=== PATIENT | male | born 1980 ===

== ENCOUNTER → 2020-11-28 11:04 | Outpatient (CLI) | payer OTHER, MEDICAID, SELFPAY ==
[2020-11-28 11:56] LABS: Hemoglobin A1C% w Est Avg Glu 4.9 % (4.0-6.0)
[2020-11-28 12:16] LABS: Alanine Aminotransferase 43 IU/L (<50); Albumin 4.7 g/dL (3.5-5.0); Albumin Globulin Ratio 1.6 (1.0-2.8); Alkaline Phosphatase 79 U/L (38-126); Aspartate Aminotransferase 34 IU/L (17-59); BUN Creatinine Ratio 11.7 (6-22); Bilirubin Total 0.8 mg/dL (0.2-1.3); Blood Urea Nitrogen 9 mg/dL (9-20); Calcium 9.5 mg/dL (8.4-10.2); Carbon Dioxide 29 mmol/L (22-32); Chloride 102 mmol/L (98-107); Cholesterol 184 mg/dL (140-199); Estimated Glomerular Filt Rate > 60.0 mL/min (>60); Globulin 2.9 g/dL (1.7-4.1); Glucose 90 mg/dL (70-100); HDL Cholesterol 43 mg/dL (40-60); HEMOLYSIS < 15 (0-50); LDL Cholesterol Calculated 119 mg/dL (<100); Potassium 4.2 mmol/L (3.4-5.1); Sodium 138 mmol/L (137-145); Total Protein 7.6 g/dL (6.3-8.2); Triglycerides 110 mg/dL (35-150)
== END ==
PROVIDERS: PCP Family Medicine; Referring Provider Family Medicine; Visit Provider Family Medicine
DX: M54.5 Low back pain (principal); M62.830 Muscle spasm of back; S23.3XXA Sprain of ligaments of thoracic spine, initial encounter; Z13.1 Encounter for screening for diabetes mellitus; Z13.220 Encounter for screening for lipoid disorders
CPT/HCPCS: 36415; 80053; 80061; 83036

== ENCOUNTER 2021-01-03 10:15 | Outpatient (RCR) | payer OTHER, MEDICAID, SELFPAY ==
--- NOTE | 2020-11-15 10:53 | PT.OIE ---
Current Diagnoses Low back pain (11/15/20) Muscle spasm of back (11/15/20) Sprain of ligaments of thoracic spine, initial encounter (11/15/20) Past Medical History (Last Updated 11/11/20 @ 14:40 by Ryan Morse MD) Cerumen impaction Diabetes mellitus screening Screening cholesterol level Visit Care Team Role Provider Type Kenny Cantu DO Primary Care Provider Physician Specialty: Family Practice Address: [address] [place] [address] Email: [email or web address] Ryan Morse MD Attending Provider Physician Referring Provider Specialty: [facility] Address: [address] [place] [address], [id number] Email: [email or web address] Initial Evaluation PT-OP-A Visit Information Start: 11/15/20 08:30 Freq: Status: Active Protocol: Document 11/15/20 09:00 AMB (Rec: 11/15/20 16:01 AMB [email or web address]) Out-Patient Physical Therapy Visit Information Visit Information Visit Type Initial Evaluation Visit Start Time 09:00 Visit Stop Time 09:45 Total Visit Minutes 45 Visit Number 1 PT-OP-B Current Condition Start: 11/15/20 08:30 Freq: Status: Active Protocol: Document 11/15/20 09:02 AMB (Rec: 11/15/20 09:32 AMB [id number]) Current Condition History of Current Condition Onset Date A few months ago Current Complaints Acute flare up of chronic back pain History of Current Condition Keith reports he was lifting his 30# niece in a bend/lift/ twist motion and flared up his back pain. He does think sx have been improving, but continues to notice pinching with flexion or extension. Has been getting better with acupucture, had been seeing a chiropractor and it is somewhat helpful. Running a few weeks ago about a mile, normally running 2-3 miles. No numbness tingling radiating pain. Pt is 6'3 and notes he has had poor posture, remembers being in school and slouching and figures that started the pain in the beginning. Pain is mostly lower thoracic in nature. 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 and that was an issue Current Functional Impairments (Reported) Functional Limitations- ADL's Pain with lifting, has been avoiding flexion and extension of spine, limiting running due to impact Personal Factors Other Personal Factors That May Effect pt is 6'3 Therapy/Recovery PT-OP-C Subjective Start: 11/15/20 08:30 Freq: Status: Active Protocol: Document 11/15/20 09:00 AMB (Rec: 11/16/20 10:52 AMB [email or web address]) Patient Questionnaires Oswestry Low Back Index Oswestry Score 32 Oswestry Impairment 20 to 39% Impaired (Score 20- 39) OP-PT Pain Assessment Comments Pain Comments 4-8/10 from T10-L1 denies laterality of pain PT-OP-F Manual Assessment Start: 11/15/20 08:30 Freq: Status: Active Protocol: Document 11/15/20 09:00 AMB (Rec: 11/16/20 10:52 AMB [email or web address]) Manual Assessments Joint Mobility Assessment Joint Mobility Assessment Stiffness with PAs from T8 to L1, good movement of L3-5. PT-OP-J Posture/Palpation/Skin Start: 11/15/20 08:30 Freq: Status: Active Protocol: Document 11/15/20 09:00 AMB (Rec: 11/16/20 10:52 AMB [email or web address]) Posture Evaluation Comments Posture Comments Pt with increased thoracic kyphosis and lumbar lordosis PT-OP-K Range of Motion Start: 11/15/20 08:30 Freq: Status: Active Protocol: Document 11/15/20 09:00 AMB (Rec: 11/16/20 10:52 AMB [email or web address]) Lumbar Spine Range of Motion Lumbar Spine Active Degrees Testing Position Standing ROM Limitations Muscle Tone,Pain Comments flat thoracic and lumbar spine with flexion, only movement from hip flexion, good movement with extension and sidebending bilaterally PT-OP-M Strength Start: 11/15/20 08:30 Freq: Status: Active Protocol: Document 11/15/20 09:00 AMB (Rec: 11/16/20 10:52 AMB [email or web address]) Hip Strength Hip Manual Muscle Testing Right Flexion (L2) 5 Normal Extension (S1) 5 Normal Abduction 5 Normal Adduction 5 Normal Left Flexion (L2) 5 Normal Extension (S1) 5 Normal Abduction 5 Normal Adduction 5 Normal PT-OP-Q Treatments Start: 11/15/20 08:30 Freq: Status: Active Protocol: Document 11/15/20 09:00 AMB (Rec: 11/16/20 10:52 AMB [email or web address]) Therapeutic Exercises Supine Exercises 1 Supine Exercise Name hamstring stretch Reps/Minutes 30x2 Sidelying Exercises 1 Sidelying Exercise Name open book Reps/Minutes 2x10 Other Exercises 1 Other Exercise Name helen pose Reps/Minutes 30x2 PT-OP-T Assessment and Plan Start: 11/15/20 08:30 Freq: Status: Active Protocol: Document 11/15/20 09:00 AMB (Rec: 11/15/20 16:01 AMB [email or web address]) Physical Therapy Assessment Rehab Potential Rehabilitation Potential Good Evaluation Complexity Number of Personal Factors/Comorbidities 0 Number of Body Systems Impaired 4 or More Clinical Presentation at Evaluation Stable Impairments Impairments Functional Activities,Pain, Posture,ROM,Strength Goals Three Impairment Pain Short Term Goal (STG) Keith will lift 20 pounds from floor to waist height without an increase in back pain. STG Duration 4 weeks Assisted Goal (LTG) Keith will run 2 miles without back pain. LTG Duration 8 weeks Two Impairment ROM Short Term Goal (STG) Keith will improve his range of motion so that he can bend forward without back pain. STG Duration 4 weeks One Impairment HEP Short Term Goal (STG) Keith will be independent with his HEP for thoracic mobility and core stability. STG Duration 4 weeks Assessment Summary Assessment Ollie attends physical therapy with lower thoracic back pain, worse with sitting, standing, lifting. It has been slowly improving with time, but he is still very careful and has not returned to his previous level of function of running and lifting. He would benefit from physical therapy to improve his thoracolumbar mobility, improve his core stability, and help him return to his active lifestyle of running and being able to lift at work and lift his niece without back pain. Physical Therapy Plan Frequency and Duration Frequency of Treatment 2x/Week Duration of Treatment 8 weeks Plan of Care Start Date 11/15/20 Plan of Care End Date 01/10/21 Therapeutic Interventions Therapeutic Interventions Home Exercise Program,Joint Mobilizations,Manual Therapy, Neuromuscular Re-education, Self-Care/Home Management,Soft Tissue Mobilization, Therapeutic Activities, Therapeutic Exercises Modalities Cold Pack/Ice Massage,Electric Stimulation,Hot Packs Next Visit Focus/Plan Next Note Type Treatment Note Next Visit Plan Follow up on HEP: open book, helen pose, hamstring stretch , begin core stabilization
--- NOTE | 2020-11-15 10:55 | PT.OPPOC ---
Physical, Occupational & Speech Therapy At Located Within [facility] Current Diagnoses Low back pain (11/15/20) Muscle spasm of back (11/15/20) Sprain of ligaments of thoracic spine, initial encounter (11/15/20) Visit Care Team Role Provider Type Kenny Cantu DO Primary Care Provider Physician Specialty: [facility] Address: [address] [place] [address], [id number] Email: [email or web address] Ryan Morse MD Attending Provider Physician Referring Provider Specialty: [facility] Address: [address] [place] [address], [id number] Email: [email or web address] Plan Of Care PT-OP-T Assessment and Plan Start: 11/15/20 08:30 Freq: Status: Active Protocol: Document 11/15/20 09:00 AMB (Rec: 11/15/20 16:01 AMB [email or web address]) Physical Therapy Assessment Rehab Potential Rehabilitation Potential Good Evaluation Complexity Number of Personal Factors/Comorbidities 0 Number of Body Systems Impaired 4 or More Clinical Presentation at Evaluation Stable Impairments Impairments Functional Activities,Pain, Posture,ROM,Strength Goals Three Impairment Pain Short Term Goal (STG) Keith will lift 20 pounds from floor to waist height without an increase in back pain. STG Duration 4 weeks Legislative Correspondent Goal (LTG) Keith will run 2 miles without back pain. LTG Duration 8 weeks Two Impairment ROM Short Term Goal (STG) Keith will improve his range of motion so that he can bend forward without back pain. STG Duration 4 weeks One Impairment HEP Short Term Goal (STG) Keith will be independent with his HEP for thoracic mobility and core stability. STG Duration 4 weeks Assessment Summary Assessment Ollie attends physical therapy with lower thoracic back pain, worse with sitting, standing, lifting. It has been slowly improving with time, but he is still very careful and has not returned to his previous level of function of running and lifting. He would benefit from physical therapy to improve his thoracolumbar mobility, improve his core stability, and help him return to his active lifestyle of running and being able to lift at work and lift his niece without back pain. Physical Therapy Plan Frequency and Duration Frequency of Treatment 2x/Week Duration of Treatment 8 weeks Plan of Care Start Date 11/15/20 Plan of Care End Date 01/10/21 Therapeutic Interventions Therapeutic Interventions Home Exercise Program,Joint Mobilizations,Manual Therapy, Neuromuscular Re-education, Self-Care/Home Management,Soft Tissue Mobilization, Therapeutic Activities, Therapeutic Exercises Modalities Cold Pack/Ice Massage,Electric Stimulation,Hot Packs Next Visit Focus/Plan Next Note Type Treatment Note Next Visit Plan Follow up on HEP: open book, helen pose, hamstring stretch , begin core stabilization Plan of Care Dates Plan of Care Start Date 11/15/20 Plan of Care End Date 01/10/21 Electronically Signed by: Alexus Velez, PT 11/16/20 0828 Please Sign and Return: I have reviewed this Plan of Care and certify that the skilled therapy services above are required to meet the patient?s needs. Physician Signature Date Printed Name and Credentials Clinical Instructor Signature Printed Name and Credentials
--- NOTE | 2020-11-18 16:10 | PT.OTN ---
Current Diagnoses Low back pain (11/18/20) Muscle spasm of back (11/18/20) Sprain of ligaments of thoracic spine, initial encounter (11/18/20) Physical Therapy Treatment Note PT-OP-A Visit Information Start: 11/15/20 08:30 Freq: Status: Active Protocol: Document 11/18/20 08:58 AMB (Rec: 11/18/20 10:11 AMB [id number]) Out-Patient Physical Therapy Visit Information Visit Information Visit Type Treatment Note Visit Start Time 09:00 Visit Stop Time 09:45 Total Visit Minutes 45 Visit Number 2 PT-OP-B Current Condition Start: 11/15/20 08:30 Freq: Status: Active Protocol: Document 11/15/20 09:02 AMB (Rec: 11/15/20 09:32 AMB [id number]) Current Condition History of Current Condition Onset Date A few months ago Current Complaints Acute flare up of chronic back pain History of Current Condition Keith reports he was lifting his 30# niece in a bend/lift/ twist motion and flared up his back pain. He does think sx have been improving, but continues to notice pinching with flexion or extension. Has been getting better with acupucture, had been seeing a chiropractor and it is somewhat helpful. Running a few weeks ago about a mile, normally running 2-3 miles. No numbness tingling radiating pain. Pt is 6'3 and notes he has had poor posture, remembers being in school and slouching and figures that started the pain in the beginning. Pain is mostly lower thoracic in nature. 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 PT-OP-F Manual Assessment Start: 11/15/20 08:30 Freq: Status: Active Protocol: Document 11/15/20 09:00 AMB (Rec: 11/16/20 10:52 AMB [email or web address]) Manual Assessments Joint Mobility Assessment Joint Mobility Assessment Stiffness with PAs from T8 to L1, good movement of L3-5. PT-OP-J Posture/Palpation/Skin Start: 11/15/20 08:30 Freq: Status: Active Protocol: Document 11/15/20 09:00 AMB (Rec: 11/16/20 10:52 AMB [email or web address]) Posture Evaluation Comments Posture Comments Pt with increased thoracic kyphosis and lumbar lordosis PT-OP-K Range of Motion Start: 11/15/20 08:30 Freq: Status: Active Protocol: Document 11/15/20 09:00 AMB (Rec: 11/16/20 10:52 AMB [email or web address]) Lumbar Spine Range of Motion Lumbar Spine Active Degrees Testing Position Standing ROM Limitations Muscle Tone,Pain Comments flat thoracic and lumbar spine with flexion, only movement from hip flexion, good movement with extension and sidebending bilaterally PT-OP-M Strength Start: 11/15/20 08:30 Freq: Status: Active Protocol: Document 11/15/20 09:00 AMB (Rec: 11/16/20 10:52 AMB [email or web address]) Hip Strength Hip Manual Muscle Testing Right Flexion (L2) 5 Normal Extension (S1) 5 Normal Abduction 5 Normal Adduction 5 Normal Left Flexion (L2) 5 Normal Extension (S1) 5 Normal Abduction 5 Normal Adduction 5 Normal PT-OP-Q Treatments Start: 11/15/20 08:30 Freq: Status: Active Protocol: Document 11/18/20 09:00 AMB (Rec: 11/18/20 16:05 AMB [id number]) Therapeutic Exercises Supine Exercises 2 Supine Exercise Name bridges Reps/Minutes 2x10 Sidelying Exercises 1 Sidelying Exercise Name open book Reps/Minutes 2x10 Sitting Exercises 1 Sitting Exercise Name pelvic circles, with focus on lumbar thoracic movement Comments pt is very stiff through thoracolumbar junction Other Exercises 2 Other Exercise Name cat cow Reps/Minutes 10 1 Other Exercise Name helen pose Reps/Minutes 30x2 Manual Therapy Treatment Soft Tissue Mobilization 1 Body Location thoracic paraspinals Mobilization Type Myofascial Release Joint Mobilizations 1 Joint T8-12 Direction PA Grade IV Body Position Prone Comments in neutral and then in extension Taping 1 Body Location thoracic paraspinals Type of Tape Kinesio Tape Comments 2 I strips PT-OP-T Assessment and Plan Start: 11/15/20 08:30 Freq: Status: Active Protocol: Document 11/18/20 09:00 AMB (Rec: 11/18/20 16:05 AMB [id number]) Physical Therapy Assessment Goals Three Impairment Pain Short Term Goal (STG) Keith will lift 20 pounds from floor to waist height without an increase in back pain. STG Duration 4 weeks Retirement Goal (LTG) Keith will run 2 miles without back pain. LTG Duration 8 weeks Two Impairment ROM Short Term Goal (STG) Keith will improve his range of motion so that he can bend forward without back pain. STG Duration 4 weeks One Impairment HEP Short Term Goal (STG) Keith will be independent with his HEP for thoracic mobility and core stability. STG Duration 4 weeks Assessment Summary Assessment Ollie did well with manual therapy, but even a small amount of thoracic flexion increases his pain. Will start more core stability in neutral, recheck k tape next visit. HEP: bridges with focus on vertebrae by vertebrae, cat/cow before helen pose as warm up. Physical Therapy Plan Next Visit Focus/Plan Next Note Type Treatment Note Next Visit Plan Progress more core stability, working in neutral first
--- NOTE | 2020-11-22 15:51 | PT.OTN ---
Current Diagnoses Low back pain (11/22/20) Muscle spasm of back (11/22/20) Sprain of ligaments of thoracic spine, initial encounter (11/22/20) Physical Therapy Treatment Note PT-OP-A Visit Information Start: 11/15/20 08:30 Freq: Status: Active Protocol: Document 11/22/20 09:00 AMB (Rec: 11/22/20 15:51 AMB [email or web address]) Out-Patient Physical Therapy Visit Information Visit Information Visit Type Treatment Note Visit Start Time 09:00 Visit Stop Time 09:45 Total Visit Minutes 45 Visit Number 3 PT-OP-B Current Condition Start: 11/15/20 08:30 Freq: Status: Active Protocol: Document 11/15/20 09:02 AMB (Rec: 11/15/20 09:32 AMB [id number]) Current Condition History of Current Condition Onset Date A few months ago Current Complaints Acute flare up of chronic back pain History of Current Condition Keith reports he was lifting his 30# niece in a bend/lift/ twist motion and flared up his back pain. He does think sx have been improving, but continues to notice pinching with flexion or extension. Has been getting better with acupucture, had been seeing a chiropractor and it is somewhat helpful. Running a few weeks ago about a mile, normally running 2-3 miles. No numbness tingling radiating pain. Pt is 6'3 and notes he has had poor posture, remembers being in school and slouching and figures that started the pain in the beginning. Pain is mostly lower thoracic in nature. 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 PT-OP-F Manual Assessment Start: 11/15/20 08:30 Freq: Status: Active Protocol: Document 11/15/20 09:00 AMB (Rec: 11/16/20 10:52 AMB [email or web address]) Manual Assessments Joint Mobility Assessment Joint Mobility Assessment Stiffness with PAs from T8 to L1, good movement of L3-5. PT-OP-J Posture/Palpation/Skin Start: 11/15/20 08:30 Freq: Status: Active Protocol: Document 11/15/20 09:00 AMB (Rec: 11/16/20 10:52 AMB [email or web address]) Posture Evaluation Comments Posture Comments Pt with increased thoracic kyphosis and lumbar lordosis PT-OP-K Range of Motion Start: 11/15/20 08:30 Freq: Status: Active Protocol: Document 11/15/20 09:00 AMB (Rec: 11/16/20 10:52 AMB [email or web address]) Lumbar Spine Range of Motion Lumbar Spine Active Degrees Testing Position Standing ROM Limitations Muscle Tone,Pain Comments flat thoracic and lumbar spine with flexion, only movement from hip flexion, good movement with extension and sidebending bilaterally PT-OP-M Strength Start: 11/15/20 08:30 Freq: Status: Active Protocol: Document 11/15/20 09:00 AMB (Rec: 11/16/20 10:52 AMB [email or web address]) Hip Strength Hip Manual Muscle Testing Right Flexion (L2) 5 Normal Extension (S1) 5 Normal Abduction 5 Normal Adduction 5 Normal Left Flexion (L2) 5 Normal Extension (S1) 5 Normal Abduction 5 Normal Adduction 5 Normal PT-OP-Q Treatments Start: 11/15/20 08:30 Freq: Status: Active Protocol: Document 11/22/20 09:00 AMB (Rec: 11/22/20 15:51 AMB [email or web address]) Therapeutic Exercises Supine Exercises 2 Supine Exercise Name bridges Reps/Minutes 2x10 1 Supine Exercise Name supine bike Reps/Minutes 1 minx2 Comments with TA Sidelying Exercises 1 Sidelying Exercise Name open book Reps/Minutes 2x10 Comments #3 t band Standing Exercises 2 Standing Exercise Name thoracic rotation Reps/Minutes #3 tband 1 Standing Exercise Name spinal flexion with sacrum against the wall Reps/Minutes 2x10 Comments with focus on moving incrementally vertebrae by vertebrae Other Exercises 2 Other Exercise Name cat cow Reps/Minutes 10 1 Other Exercise Name helen pose Reps/Minutes 30x2 PT-OP-T Assessment and Plan Start: 11/15/20 08:30 Freq: Status: Active Protocol: Document 11/22/20 09:00 AMB (Rec: 11/22/20 15:51 AMB [email or web address]) Physical Therapy Assessment Goals Three Impairment Pain Short Term Goal (STG) Keith will lift 20 pounds from floor to waist height without an increase in back pain. STG Duration 4 weeks Electronics Mechanic Apprentice Goal (LTG) Keith will run 2 miles without back pain. LTG Duration 8 weeks Two Impairment ROM Short Term Goal (STG) Keith will improve his range of motion so that he can bend forward without back pain. STG Duration 4 weeks One Impairment HEP Short Term Goal (STG) Ketih will be independent with his HEP for thoracic mobility and core stability. STG Duration 4 weeks Assessment Summary Assessment Pt felt more activation of L sided abdominals with rotational core exercises, but straight plane was able to activate both, continues to be stiff into flexion, but doing better with extension. Physical Therapy Plan Next Visit Focus/Plan Next Note Type Treatment Note Next Visit Plan Progress more core stability, working in neutral first
--- NOTE | 2020-11-28 17:17 | PT.OTN ---
Current Diagnoses Low back pain (11/28/20) Muscle spasm of back (11/28/20) Sprain of ligaments of thoracic spine, initial encounter (11/28/20) Physical Therapy Treatment Note PT-OP-A Visit Information Start: 11/15/20 08:30 Freq: Status: Active Protocol: Document 11/28/20 10:21 MA (Rec: 11/28/20 11:00 MA [id number]) Out-Patient Physical Therapy Visit Information Visit Information Visit Type Treatment Note Visit Start Time 10:18 Visit Stop Time 11:58 Total Visit Minutes 40 Visit Number 4 Number of SURGERY SCHEDULER Visits 1 PT-OP-B Current Condition Start: 11/15/20 08:30 Freq: Status: Active Protocol: Document 11/15/20 09:02 AMB (Rec: 11/15/20 09:32 AMB [id number]) Current Condition History of Current Condition Onset Date A few months ago Current Complaints Acute flare up of chronic back pain History of Current Condition Keith reports he was lifting his 30# niece in a bend/lift/ twist motion and flared up his back pain. He does think sx have been improving, but continues to notice pinching with flexion or extension. Has been getting better with acupucture, had been seeing a chiropractor and it is somewhat helpful. Running a few weeks ago about a mile, normally running 2-3 miles. No numbness tingling radiating pain. Pt is 6'3 and notes he has had poor posture, remembers being in school and slouching and figures that started the pain in the beginning. Pain is mostly lower thoracic in nature. 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 PT-OP-F Manual Assessment Start: 11/15/20 08:30 Freq: Status: Active Protocol: Document 11/15/20 09:00 AMB (Rec: 11/16/20 10:52 AMB [email or web address]) Manual Assessments Joint Mobility Assessment Joint Mobility Assessment Stiffness with PAs from T8 to L1, good movement of L3-5. PT-OP-J Posture/Palpation/Skin Start: 11/15/20 08:30 Freq: Status: Active Protocol: Document 11/15/20 09:00 AMB (Rec: 11/16/20 10:52 AMB [email or web address]) Posture Evaluation Comments Posture Comments Pt with increased thoracic kyphosis and lumbar lordosis PT-OP-K Range of Motion Start: 11/15/20 08:30 Freq: Status: Active Protocol: Document 11/15/20 09:00 AMB (Rec: 11/16/20 10:52 AMB [email or web address]) Lumbar Spine Range of Motion Lumbar Spine Active Degrees Testing Position Standing ROM Limitations Muscle Tone,Pain Comments flat thoracic and lumbar spine with flexion, only movement from hip flexion, good movement with extension and sidebending bilaterally PT-OP-M Strength Start: 11/15/20 08:30 Freq: Status: Active Protocol: Document 11/15/20 09:00 AMB (Rec: 11/16/20 10:52 AMB [email or web address]) Hip Strength Hip Manual Muscle Testing Right Flexion (L2) 5 Normal Extension (S1) 5 Normal Abduction 5 Normal Adduction 5 Normal Left Flexion (L2) 5 Normal Extension (S1) 5 Normal Abduction 5 Normal Adduction 5 Normal PT-OP-Q Treatments Start: 11/15/20 08:30 Freq: Status: Active Protocol: Document 11/28/20 10:21 MA (Rec: 11/28/20 11:00 MA [id number]) Therapeutic Exercises Supine Exercises Pelvic Tucks Reps/Minutes x10 Comments Focus on TrA activation LTR Supine Exercise Name Lower Trunk Rotations Side bilateral Reps/Minutes 8x 10 hold 2 Supine Exercise Name articulating bridges Reps/Minutes 2x10 1 Supine Exercise Name 1. Supine Bike 2. double leg ext Prone Exercises Extension Prone Exercise Name opp UE/LE Reps/Minutes x8 Plank Prone Exercise Name 1. modified on forearms 2. full plank Reps/Minutes x30 sec Comments Cues for pelvic tuck to avoid lumbar lordosis Sidelying Exercises 1 Sidelying Exercise Name open book Side bilateral Reps/Minutes 8x5 Standing Exercises 2 Standing Exercise Name thoracic rotation Equipment Used #3 tband Reps/Minutes x10 1 Standing Exercise Name spinal flexion with sacrum against the wall Reps/Minutes 2x10 Comments with focus on moving incrementally vertebrae by vertebrae Other Exercises 2 Other Exercise Name cat cow Reps/Minutes 10 1 Other Exercise Name 1. helen pose 2. reaching arms to R/L Reps/Minutes 30 ea Therapeutic Activity Therapeutic Activity Lifting Name Lifting Reps/Minutes 4x Comments Lifting 24 box off floor and setting it back down, working on squatting and keeping back straight, pulling object closer to body PT-OP-T Assessment and Plan Start: 11/15/20 08:30 Freq: Status: Active Protocol: Document 11/28/20 10:21 MA (Rec: 11/28/20 11:00 MA [id number]) Physical Therapy Assessment Goals Three Impairment Pain Short Term Goal (STG) Keith will lift 20 pounds from floor to waist height without an increase in back pain. STG Duration 4 weeks Snf Goal (LTG) Keith will run 2 miles without back pain. LTG Duration 8 weeks Two Impairment ROM Short Term Goal (STG) Keith will improve his range of motion so that he can bend forward without back pain. STG Duration 4 weeks One Impairment HEP Short Term Goal (STG) Keith will be independent with his HEP for thoracic mobility and core stability. STG Duration 4 weeks Assessment Summary Assessment Pt needed minor cues for core activation and segmental movements during ther ex today . Worked on lifting with pt squatting to lift, but forward flexing to set back down. Educated pt on still bending knees, keeping back straight, to set objects back on floor with pt showing good understanding. During fwd flexion with sacrum against wall, pt needed cues to roll back up slowing, segmentally. Physical Therapy Plan Frequency and Duration Frequency of Treatment 2x/Week Duration of Treatment 8 weeks Plan of Care Start Date 11/15/20 Plan of Care End Date 01/10/21 Therapeutic Interventions Therapeutic Interventions Home Exercise Program,Joint Mobilizations,Manual Therapy, Neuromuscular Re-education, Self-Care/Home Management,Soft Tissue Mobilization, Therapeutic Activities, Therapeutic Exercises Modalities Cold Pack/Ice Massage,Electric Stimulation,Hot Packs Next Visit Focus/Plan Next Note Type Treatment Note Next Visit Plan Talk with pt about continuing PT or d/c Progress more core stability, working in neutral first, manual as needed to paraspinals
--- NOTE | 2020-11-30 11:45 | PT.OTN ---
Current Diagnoses Low back pain (11/30/20) Muscle spasm of back (11/30/20) Sprain of ligaments of thoracic spine, initial encounter (11/30/20) Physical Therapy Treatment Note PT-OP-A Visit Information Start: 11/15/20 08:30 Freq: Status: Active Protocol: Document 11/30/20 09:32 MA (Rec: 11/30/20 10:15 MA [id number]) Out-Patient Physical Therapy Visit Information Visit Information Visit Type Treatment Note Visit Start Time 09:30 Visit Stop Time 10:12 Total Visit Minutes 42 Visit Number 5 Number of BINDER SORTER Visits 2 PT-OP-B Current Condition Start: 11/15/20 08:30 Freq: Status: Active Protocol: Document 11/15/20 09:02 AMB (Rec: 11/15/20 09:32 AMB [id number]) Current Condition History of Current Condition Onset Date A few months ago Current Complaints Acute flare up of chronic back pain History of Current Condition Keith reports he was lifting his 30# niece in a bend/lift/ twist motion and flared up his back pain. He does think sx have been improving, but continues to notice pinching with flexion or extension. Has been getting better with acupucture, had been seeing a chiropractor and it is somewhat helpful. Running a few weeks ago about a mile, normally running 2-3 miles. No numbness tingling radiating pain. Pt is 6'3 and notes he has had poor posture, remembers being in school and slouching and figures that started the pain in the beginning. Pain is mostly lower thoracic in nature. 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 He will book one more appt for 1 month from now for d/c pending how low back is feeling PT-OP-F Manual Assessment Start: 11/15/20 08:30 Freq: Status: Active Protocol: Document 11/15/20 09:00 AMB (Rec: 11/16/20 10:52 AMB [email or web address]) Manual Assessments Joint Mobility Assessment Joint Mobility Assessment Stiffness with PAs from T8 to L1, good movement of L3-5. PT-OP-J Posture/Palpation/Skin Start: 11/15/20 08:30 Freq: Status: Active Protocol: Document 11/15/20 09:00 AMB (Rec: 11/16/20 10:52 AMB [email or web address]) Posture Evaluation Comments Posture Comments Pt with increased thoracic kyphosis and lumbar lordosis PT-OP-K Range of Motion Start: 11/15/20 08:30 Freq: Status: Active Protocol: Document 11/15/20 09:00 AMB (Rec: 11/16/20 10:52 AMB [email or web address]) Lumbar Spine Range of Motion Lumbar Spine Active Degrees Testing Position Standing ROM Limitations Muscle Tone,Pain Comments flat thoracic and lumbar spine with flexion, only movement from hip flexion, good movement with extension and sidebending bilaterally PT-OP-M Strength Start: 11/15/20 08:30 Freq: Status: Active Protocol: Document 11/15/20 09:00 AMB (Rec: 11/16/20 10:52 AMB [email or web address]) Hip Strength Hip Manual Muscle Testing Right Flexion (L2) 5 Normal Extension (S1) 5 Normal Abduction 5 Normal Adduction 5 Normal Left Flexion (L2) 5 Normal Extension (S1) 5 Normal Abduction 5 Normal Adduction 5 Normal PT-OP-Q Treatments Start: 11/15/20 08:30 Freq: Status: Active Protocol: Document 11/30/20 09:32 MA (Rec: 11/30/20 10:15 MA [id number]) Therapeutic Exercises Supine Exercises SLR Supine Exercise Name straight leg raises Side bilateral Reps/Minutes x8 Comments focus on TA LTR Supine Exercise Name Lower Trunk Rotations Side bilateral Reps/Minutes 8x 10 hold 2 Supine Exercise Name articulating bridges Reps/Minutes x8 1 Supine Exercise Name 1. Supine Bike 2. double leg ext Reps/Minutes 30 sec ea Comments with TA Sidelying Exercises 1 Sidelying Exercise Name open book Side bilateral Reps/Minutes 8x5 Standing Exercises 2 Standing Exercise Name thoracic rotation Equipment Used #3 tband Reps/Minutes x10 1 Standing Exercise Name spinal flexion with sacrum against the wall Reps/Minutes 2x10 Comments with focus on moving incrementally vertebrae by vertebrae Other Exercises 1 Other Exercise Name 1. helen pose 2. reaching arms to R/L Reps/Minutes 30 ea Manual Therapy Treatment Soft Tissue Mobilization 1 Body Location thoracic paraspinals Mobilization Type Myofascial Release Self-Care/Home Management Treatment Activities Self-Care/Home Management Activities STM with tennis ball to thoracic and lumbar areas PT-OP-T Assessment and Plan Start: 11/15/20 08:30 Freq: Status: Active Protocol: Document 11/30/20 09:32 MA (Rec: 11/30/20 10:15 MA [id number]) Physical Therapy Assessment Goals Three Impairment Pain Short Term Goal (STG) Ketih will lift 20 pounds from floor to waist height without an increase in back pain. STG Duration 4 weeks Group Home Goal (LTG) Keith will run 2 miles without back pain. LTG Duration 8 weeks Two Impairment ROM Short Term Goal (STG) Keith will improve his range of motion so that he can bend forward without back pain. STG Duration 4 weeks One Impairment HEP Short Term Goal (STG) Keith will be independent with his HEP for thoracic mobility and core stability. STG Duration 4 weeks Assessment Summary Assessment Pt's back has been doing well. He still has some pain with forward flexion but thinks that the articulating bridges help him move through his spine better. Discussed d/c with pt and recommended pt schedule a follow up appt for 1 month to see how his back is feeling before official d/c with pt in agreement. Added self-STM with tennis ball to HEP as needed. Physical Therapy Plan Frequency and Duration Frequency of Treatment 2x/Week Duration of Treatment 8 weeks Plan of Care Start Date 11/15/20 Plan of Care End Date 01/10/21 Therapeutic Interventions Therapeutic Interventions Home Exercise Program,Joint Mobilizations,Manual Therapy, Neuromuscular Re-education, Self-Care/Home Management,Soft Tissue Mobilization, Therapeutic Activities, Therapeutic Exercises Modalities Cold Pack/Ice Massage,Electric Stimulation,Hot Packs Next Visit Focus/Plan Next Note Type Treatment Note Next Visit Plan Next treatment possible d/c. See how pt's back is feeling during forward flexion. Review HEP as needed.
--- NOTE | 2021-01-03 12:00 | PT.OTN ---
Current Diagnoses Low back pain (01/03/21) Muscle spasm of back (01/03/21) Sprain of ligaments of thoracic spine, initial encounter (01/03/21) Physical Therapy Treatment Note PT-OP-A Visit Information Start: 11/15/20 08:30 Freq: Status: Active Protocol: Document 01/03/21 10:20 AMB (Rec: 01/03/21 11:08 AMB [id number]) Out-Patient Physical Therapy Visit Information Visit Information Visit Type Treatment Note Visit Start Time 10:15 Visit Stop Time 11:00 Total Visit Minutes 45 Visit Number 6 Number of TORPEDO MAN Visits 0 PT-OP-B Current Condition Start: 11/15/20 08:30 Freq: Status: Active Protocol: Document 11/15/20 09:02 AMB (Rec: 11/15/20 09:32 AMB [id number]) Current Condition History of Current Condition Onset Date A few months ago Current Complaints Acute flare up of chronic back pain History of Current Condition Keith reports he was lifting his 30# niece in a bend/lift/ twist motion and flared up his back pain. He does think sx have been improving, but continues to notice pinching with flexion or extension. Has been getting better with acupucture, had been seeing a chiropractor and it is somewhat helpful. Running a few weeks ago about a mile, normally running 2-3 miles. No numbness tingling radiating pain. Pt is 6'3 and notes he has had poor posture, remembers being in school and slouching and figures that started the pain in the beginning. Pain is mostly lower thoracic in nature. 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 He continues to feel stiff, but if he does his stretches it is managable. He can get a little pain with SLR. He has returned to running about a mile (walks for warm up first) and this has been going well. PT-OP-F Manual Assessment Start: 11/15/20 08:30 Freq: Status: Active Protocol: Document 11/15/20 09:00 AMB (Rec: 11/16/20 10:52 AMB [email or web address]) Manual Assessments Joint Mobility Assessment Joint Mobility Assessment Stiffness with PAs from T8 to L1, good movement of L3-5. PT-OP-J Posture/Palpation/Skin Start: 11/15/20 08:30 Freq: Status: Active Protocol: Document 11/15/20 09:00 AMB (Rec: 11/16/20 10:52 AMB [email or web address]) Posture Evaluation Comments Posture Comments Pt with increased thoracic kyphosis and lumbar lordosis PT-OP-K Range of Motion Start: 11/15/20 08:30 Freq: Status: Active Protocol: Document 11/15/20 09:00 AMB (Rec: 11/16/20 10:52 AMB [email or web address]) Lumbar Spine Range of Motion Lumbar Spine Active Degrees Testing Position Standing ROM Limitations Muscle Tone,Pain Comments flat thoracic and lumbar spine with flexion, only movement from hip flexion, good movement with extension and sidebending bilaterally PT-OP-M Strength Start: 11/15/20 08:30 Freq: Status: Active Protocol: Document 11/15/20 09:00 AMB (Rec: 11/16/20 10:52 AMB [email or web address]) Hip Strength Hip Manual Muscle Testing Right Flexion (L2) 5 Normal Extension (S1) 5 Normal Abduction 5 Normal Adduction 5 Normal Left Flexion (L2) 5 Normal Extension (S1) 5 Normal Abduction 5 Normal Adduction 5 Normal PT-OP-Q Treatments Start: 11/15/20 08:30 Freq: Status: Active Protocol: Document 01/03/21 10:15 AMB (Rec: 01/04/21 08:02 AMB [email or web address]) Therapeutic Exercises Supine Exercises 1 Supine Exercise Name 1. Supine Bike 2. double leg ext Reps/Minutes 30 sec ea Comments with TA Prone Exercises Plank Prone Exercise Name 1. modified on forearms 2. full plank 3. side plank Reps/Minutes x30 sec Comments Cues for pelvic tuck to avoid lumbar lordosis Sitting Exercises 2 Sitting Exercise Name seated on 75cm ball, marches, LAQ Reps/Minutes 5 min Comments focus on TA 1 Sitting Exercise Name pelvic circles, with focus on lumbar thoracic movement Standing Exercises 1 Standing Exercise Name spinal flexion with sacrum against the wall Reps/Minutes 2x10 Comments with focus on moving incrementally vertebrae by vertebrae Other Exercises 2 Other Exercise Name cat cow Reps/Minutes 10 PT-OP-T Assessment and Plan Start: 11/15/20 08:30 Freq: Status: Active Protocol: Document 01/03/21 10:20 AMB (Rec: 01/03/21 11:08 AMB [id number]) Physical Therapy Assessment Goals Three Impairment Pain Short Term Goal (STG) Ekith will lift 20 pounds from floor to waist height without an increase in back pain. STG Duration MET Grounds Maintenance Supervisor Goal (LTG) Keith will run 2 miles without back pain. LTG Duration NO PAIN WITH 1 mile Two Impairment ROM Short Term Goal (STG) Keith will improve his range of motion so that he can bend forward without back pain. 30 degrees and then pain. STG Duration PROGRESS MADE One Impairment HEP Short Term Goal (STG) Keith will be independent with his HEP for thoracic mobility and core stability. STG Duration MET Assessment Summary Assessment Keith feels he is ready to manage his back pain independently at this point. He is doing his stretches and some gentle core strengthening exercises. He does still have stiffness especially in the morning and continues to be limited with spinal flexion (compensates at hips) but has shown good progress and should continue to progress independently. Encouraged pt to follow up with MD if pain continues or progress plateaus . Physical Therapy Plan Discharge Physical Therapy Discharge Reasons Patient Request Discharge Comments Pt is ready to manage condition independently
== END 2021-01-04 12:06 | disposition home or self-care (01) ==
LOC: PHYS 10:15
PROVIDERS: PCP Family Medicine; Referring Provider Family Medicine; Visit Provider Family Medicine
DX: S23.3XXA Sprain of ligaments of thoracic spine, initial encounter (principal); M54.5 Low back pain; M62.830 Muscle spasm of back
CPT/HCPCS: 97110; 97140; 97161; 97530

== ENCOUNTER → 2022-10-31 09:00 | Outpatient (CLI) | payer OTHER, MEDICAID, SELFPAY ==
[2022-10-31 10:17] LABS: Add Manual Diff / Slide Review NO; Basophils Absolute Auto 0 /uL (0-100); Basophils Percent Auto 0.8 % (0-2); Eosinophils Absolute Auto 300 /uL (0-450); Eosinophils Percent Auto 4.5 % (2-4); Hematocrit 46.2 % (41-53); Hemoglobin 15.9 g/dL (13.5-17.5); Lymphocytes Absolute Auto 1700 /uL (1100-4500); Lymphocytes Percent Auto 29.3 % (25-40); Mean Corpuscular HGB Conc 34.5 % (30-36); Mean Corpuscular Hemoglobin 31.1 PG (26-34); Monocytes Absolute Auto 500 /uL (0-900); Monocytes Percent Auto 8.3 % (3-14); Neutrophils Absolute Auto 3400 /uL (1500-7000); Neutrophils Percent Auto 57.1 % (50-75); Platelet Count 218 X10^3/uL (150-400); Red Blood Cell Count 5.13 X10^6/uL (4.5-5.9); Red Cell Distribution Width 12.8 % (11.6-14.8)
[2022-10-31 10:37] LABS: Hemoglobin A1C% w Est Avg Glu 4.9 % (4.0-6.0)
[2022-10-31 10:44] LABS: Alanine Aminotransferase 23 IU/L (<50); Albumin 4.4 g/dL (3.5-5.0); Alkaline Phosphatase 83 U/L (38-126); Aspartate Aminotransferase 27 IU/L (17-59); BUN Creatinine Ratio 14.3 (6-22); Bilirubin Total 1.2 mg/dL (0.2-1.3); Blood Urea Nitrogen 10 mg/dL (9-20); Carbon Dioxide 27 mmol/L (22-32); Chloride 100 mmol/L (98-107); Estimated Glomerular Filt Rate > 60 mL/min (>60); Glucose 83 mg/dL (70-100); HEMOLYSIS < 15 (0-50); Potassium 4.1 mmol/L (3.4-5.1); Sodium 136 mmol/L (137-145); Total Protein 7.2 g/dL (6.3-8.2)
[2022-10-31 10:45] LABS: Albumin Globulin Ratio 1.6 (1.0-2.8); Cholesterol 163 mg/dL (140-199); Globulin 2.8 g/dL (1.7-4.1); HDL Cholesterol 46 mg/dL (40-60); LDL Cholesterol Calculated 94 mg/dL (<100); Triglycerides 117 mg/dL (35-150)
== END ==
PROVIDERS: PCP Family Medicine; Referring Provider Family Medicine; Visit Provider Family Medicine
DX: R53.83 Other fatigue (principal); R61 Generalized hyperhidrosis; R63.1 Polydipsia; Z13.1 Encounter for screening for diabetes mellitus; Z13.220 Encounter for screening for lipoid disorders; Z13.9 Encounter for screening, unspecified
CPT/HCPCS: 36415; 80053; 80061; 83036; 84443; 85025

== ENCOUNTER → 2022-11-17 08:23 | Outpatient (CLI) | payer OTHER, MEDICAID, SELFPAY ==
[2022-11-17 10:34] LABS: Erythrocyte Sedimentation Rate 1 MM/HR (0-15)
[2022-11-17 12:41] LABS: Rheumatoid Factor < 8.6 IU/mL (<12.0)
[2022-11-19 18:05] LABS: HIV 1 & 2 Ab/Ag 4th Gen Combo NEGATIVE (NEGATIVE)
[2022-11-22 18:10] LABS: ANA Screen, IFA Negative (.)
[2022-11-28 22:51] LABS: Testosterone Total 735.9 ng/dL (264.0-916.0)
[2022-11-29 13:55] LABS: Testosterone Free 14.94 ng/dL (5.00-21.00)
[2022-11-29 13:56] LABS: Percent Free Testosterone 2.03 % (1.50-4.20)
== END ==
PROVIDERS: PCP Family Medicine; Referring Provider Family Medicine; Visit Provider Family Medicine
DX: M25.50 Pain in unspecified joint (principal); M62.81 Muscle weakness (generalized); R53.83 Other fatigue
CPT/HCPCS: 36415; 84402; 84403; 85651; 86038; 86430; 87389